=== PATIENT | female | born 1955 | race Caucasian/White ===

== ENCOUNTER 2017-04-10 10:01 | Outpatient (RCR) | payer OTHER | END 2017-07-05 | disposition home or self-care (01) | LOC: CARD 10:01 | PROVIDERS: ATTEND Obstetrics & Gynecology | DX: R00.1 Bradycardia, unspecified (principal); R53.83 Other fatigue; I45.9 Conduction disorder, unspecified | CPT/HCPCS: 93225; 93226 ==

== ENCOUNTER → 2017-04-10 | Outpatient (CLI) | payer OTHER ==
--- NOTE | 2017-04-10 19:59 | Diagnostic Imaging Report ---
Bilateral screening mammogram. The current study was also evaluated with a Computer Aided Detection (CAD) system. INDICATION: Screening. No current complaints stated on the questionnaire. COMPARISON: 12/14/15. FINDINGS: The breasts are composed of heterogeneously dense parenchyma which may decrease mammographic sensitivity. There are benign-appearing calcifications seen. Allowing for technique and positional differences, no suspicious change is seen. IMPRESSION: No significant change. ACR BI-RADS Category 2: Benign findings. Result letter will be mailed to the patient. Note: At least 10% of breast cancer is not imaged by mammography. Dictated by: Dictated on workstation # [id number]
== END ==
LOC: RAD 09:55
PROVIDERS: ATTEND Obstetrics & Gynecology
DX: Z12.31 Encounter for screening mammogram for malignant neoplasm of breast (principal)
CPT/HCPCS: 77067

== ENCOUNTER 2017-10-09 20:08 | Emergency (ER) | payer OTHER ==
[~2017-10-09] VITALS: Ht 157.5 cm; Wt 55.3 kg
[2017-10-09] MEDS ORDERED: NIAC500T24 PO (20:23)
[2017-10-09] MEDS ORDERED: ASPI-586 PO (20:23)
--- NOTE | 2017-10-09 20:36 | ED Lower Extremity ---
General Chief Complaint: Lower Extremity Stated Complaint: LT FOOT/ANKLE INJ Nursing Triage Note: c/o rolling L ankle Nursing Sepsis Screen: No Definite Risk Source: patient Exam Limitations: no limitations History of Present Illness Time seen by provider: 20:35 Initial Comments To ER with left lateral foot and ankle pain after twisting it while walking down bleachers tonight prior to arrival. Onset: just prior to arrival Severity: moderate Pain/Injury Location: left foot Modifying Factors: Worse With Movement Allergies and Home Medications Home Medications Aspirin 81 Mg Tablet.dr, 81 MG PO, (Reported) Hydrocodone/Acetaminophen 1 Each Tablet, 1 EACH PO Q4H PRN for PAIN-MODERATE, # 20 Prescribed by: KATY WEST on 10/09/172100 Niacinamide 500 Mg Tablet, 500 MG PO, (Reported) Constitutional: see HPI EENTM: see HPI Respiratory: no symptoms reported Cardiovascular: no symptoms reported Genitourinary: no symptoms reported Musculoskeletal: no symptoms reported Skin: no symptoms reported Psychiatric/Neurological: No Symptoms Reported Past Tedhigf-Trljlq-Wnoanf Hx Patient Social History Alcohol Use: Denies Use Recreational Drug Use: No 2nd Hand Smoke Exposure: No Recent Foreign Travel: No Contact w/Someone Who Travel: No Recent Infectious Disease Expo: No Surgeries History of Surgeries: Yes Respiratory History of Respiratory Disorde: No Cardiovascular History of Cardiac Disorders: No Neurological History of Neurological Disord: No Genitourinary History of Genitourinary Disor: No Gastrointestinal History of Gastrointestinal Di: No Musculoskeletal History of Musculoskeletal Dis: No Endocrine History of Endocrine Disorders: No HEENT History of HEENT Disorders: No Cancer History of Cancer: No Psychosocial History of Psychiatric Problem: No Integumentary History of Skin or Integumenta: No Blood Transfusions History of Blood Disorders: No Physical Exam Vital Signs Vital Sign - Last 12Hours 10/09/17 20:20 Temp 98.8 Pulse 74 Resp 18 B/P (MAP) 115/59 (77) Pulse Ox 99 Capillary Refill : Less Than 3 Seconds General Appearance: WD/WN, no apparent distress HEENT: PERRL/EOMI, normal ENT inspection Neck: non-tender, full range of motion Respiratory: no respiratory distress, no accessory muscle use Hips: bilateral hip non-tender, bilateral hip normal inspection, bilateral hip normal range of motion Legs: bilateral leg non-tender, bilateral leg normal inspection, bilateral leg normal range of motion Knees: bilateral knee non-tender, bilateral knee normal inspection, bilateral knee normal range of motion Ankles: bilateral ankle non-tender, bilateral ankle normal inspection, bilateral ankle normal range of motion Feet: left foot pain, left foot soft tissue tenderness, left foot other (a bit of ecchymosis laterally over the fifth metatarsal/MTP joint but otherwise no swelling or deformity. Strong dorsalis pedis pulses) Neurologic/Psychiatric: alert, normal mood/affect, oriented x 3 Skin: normal color, warm/dry Progress/Results/Core Measures Results/Orders My Orders Orders - KATY WEST APRN Ankle, Left, 3 Views (10/09/17 20:23) Foot, Left, 3 Views (10/09/17 20:26) Vital Signs/I&O Vital Sign - Last 12Hours 10/09/17 20:20 Temp 98.8 Pulse 74 Resp 18 B/P (MAP) 115/59 (77) Pulse Ox 99 Blood Pressure Mean: 77 Diagnostic Imaging Diagonstic Imaging: Xray Comments NAME: JANET BURROWS [facility] REC#: [id number] PT STATUS: REG ER : 1955 PHYSICIAN: KATY WEST APRN ADMIT DATE: 10/09/17/ER Draft Date of Exam:10/09/17 FOOT, LEFT, 3 VIEWS EXAMINATION: Left foot, 3 views. COMPARISON: None. HISTORY: 61-year-old female, fall. FINDINGS: There is mildly displaced intra-articular fracture involving the base of the fifth metatarsal. There is normal variant congenital fusion of the fifth digit middle and distal phalanges. There is no identified ankle joint effusion. There is no identified additional fracture. IMPRESSION: 1. Mildly displaced intra-articular fracture involving the base of the fifth metatarsal. Dictated on workstation # [id number] Dict: 10/09/172049 Trans: 10/09/172053 MELANY [phone] Interpreted by: GARRETT STINSON MD Electronically signed by: Departure Impression Impression: Primary Impression: Foot fracture, left Disposition: 01 HOME, SELF-CARE Condition: Stable Departure-Patient Inst. Decision time for Depature: 21:00 Referrals: JESSICA OLIVEIRA MD, HOLLY A MD (PCP/Family) Primary Care Physician PASCUAL ANDERSON MD,MANN STAUFFER,NHAN DIANA,SIMON POON,FARIHA Gooden MD Patient Instructions: Foot Fracture (DC) Add. Discharge Instructions: 1. Keep the splint on at all times until you follow up with orthopedics.: Orthopedic surgeon of your choosing tomorrow to make an appointment to be seen. Usually about the 1-2 week ally they will replace my splint with a cast. Use the crutches when walking. All discharge instructions reviewed with patient and/ or family. Voiced understanding. Scripts Hydrocodone/Acetaminophen ([place] 5-325 Tablet) 1 Each Tablet 1 EACH PO Q4H Y for PAIN-MODERATE, #20 TAB Prov: KATY WEST APRN 10/09/17 KATY WEST APRN Oct 09, 2017 20:36
--- NOTE | 2017-10-09 20:55 | Diagnostic Imaging Report ---
EXAMINATION: Left ankle, 3 views. COMPARISON: None. INDICATION: 61-year-old female, fall. Ankle pain. FINDINGS: There is a mildly displaced intra-articular fracture of the base of the fifth metatarsal. There is no identified ankle joint effusion. There is no identified acute fracture specifically at the level of the left ankle. The alignment of the ankle mortise is unremarkable. IMPRESSION: 1. Mildly displaced intra-articular fracture of the base of the fifth metatarsal. 2. No additional acute fracture identified specifically at the level of the left ankle or abnormal alignment of the ankle mortise. Dictated by: Dictated on workstation # [id number]
--- NOTE | 2017-10-09 20:55 | Diagnostic Imaging Report ---
EXAMINATION: Left foot, 3 views. COMPARISON: None. HISTORY: 61-year-old female, fall. FINDINGS: There is mildly displaced intra-articular fracture involving the base of the fifth metatarsal. There is normal variant congenital fusion of the fifth digit middle and distal phalanges. There is no identified ankle joint effusion. There is no identified additional fracture. IMPRESSION: 1. Mildly displaced intra-articular fracture involving the base of the fifth metatarsal. Dictated by: Dictated on workstation # [id number]
[2017-10-09] MEDS ORDERED: HYDR-757 PO (21:01)
[2017-10-09] MEDS ORDERED: RX-HYDROCODONE/APAP 5/325 MG #4 TAB PK PO PRN (21:15)
[2017-10-09 21:29] VITALS: BP 115/59
--- OUTSIDE RECORDS SUMMARY | 2017-10-10 23:36 | XMS REPORT | Continuity of Care Document ---
Author Author [facility] Organization [facility] Address Unknown Phone Unavailable Allergies There is no data. Medications There is no data. Problems Date Dx Coded Attending Type Code Diagnosis Diagnosed By 11/25/2014 Ot V76.12 11/25/2014 Ot V76.12 12/14/2015 Ot V76.12 12/18/2015 GIBBS DO, LEE C Ot Z12.31 12/29/2015 GIBBS DO, LEE C Ot Z12.31 04/03/2017 GIBBS DO, LEE C Ot Z12.31 ENCNTR SCREEN MAMMOGRAM FOR MALIGNANT NE 04/10/2017 GIBBS DO, LEE C Ot Z12.31 ENCNTR SCREEN MAMMOGRAM FOR MALIGNANT NE 04/11/2017 GIBBS DO, LEE C Ot Z12.31 ENCNTR SCREEN MAMMOGRAM FOR MALIGNANT NE 04/11/2017 GIBBS DO, LEE C Ot I45.9 CONDUCTION DISORDER, UNSPECIFIED 04/11/2017 GIBBS DO, LEE C Ot R00.1 BRADYCARDIA, UNSPECIFIED 04/11/2017 GIBBS DO, LEE C Ot R53.83 OTHER FATIGUE 05/30/2017 GIBBS DO, LEE C Ot I45.9 CONDUCTION DISORDER, UNSPECIFIED 05/30/2017 GIBBS DO, LEE C Ot R00.1 BRADYCARDIA, UNSPECIFIED 05/30/2017 GIBBS DO, LEE C Ot R53.83 OTHER FATIGUE 05/30/2017 GIBBS DO, LEE C Ot I45.9 CONDUCTION DISORDER, UNSPECIFIED 05/30/2017 GIBBS DO, LEE C Ot R00.1 BRADYCARDIA, UNSPECIFIED 05/30/2017 GIBBS DO, LEE C Ot R53.83 OTHER FATIGUE 06/16/2017 GIBBS DO, LEE C Ot I45.9 CONDUCTION DISORDER, UNSPECIFIED 06/16/2017 GIBBS DO, LEE C Ot R00.1 BRADYCARDIA, UNSPECIFIED 06/16/2017 GIBBS DO, LEE C Ot R53.83 OTHER FATIGUE 07/05/2017 LEE GIBBS DO Lety Ot I45.9 CONDUCTION DISORDER, UNSPECIFIED 07/05/2017 LEE GIBBS DO Lety Ot R00.1 BRADYCARDIA, UNSPECIFIED 07/05/2017 LEE GIBBS DO Lety Ot R53.83 OTHER FATIGUE Procedures There is no data. Results There is no data. Encounters ACCT No. Visit Date/Time Discharge Status Pt. Type Provider Facility Loc./Unit Complaint [id number] 07/06/2017 10:45:00 07/06/2017 23:59:59 CLS Preadmit BERNIE HARPLEE [facility] CARD BRADYCARDIA R00.1 [id number] 04/10/2017 10:01:00 07/05/2017 00:01:00 DIS Outpatient BERNIE HARPLEE [facility] CARD BRADYCARDIA R00.1 [id number] 04/10/2017 09:55:00 04/10/2017 23:59:59 CLS Outpatient BERNIE HARP LEE C [facility] RAD SCREENING Z12.31 [id number] 12/14/2015 12:57:00 12/14/2015 23:59:59 CLS Outpatient LEE GIBBS DO [facility] RAD SCREENING [id number] 11/04/2013 14:52:00 11/04/2013 23:59:59 CLS Outpatient [id number] 11/24/2014 13:09:00 Document Registration
== END 2017-10-09 21:29 | disposition home or self-care (01) ==
LOC: EDUNIT# 20:08 → ER 20:10
DX: S62.317A Displaced fracture of base of fifth metacarpal bone, left hand, initial encounter for closed fracture (principal); Z79.82 Long term (current) use of aspirin; X50.0XXA Overexertion from strenuous movement or load, initial encounter
CPT/HCPCS: 73610; 73630; 99283

== ENCOUNTER 2018-10-01 15:30 | Outpatient (RCR) | payer OTHER ==
[~2018-10-01 15:30] MED LIST: ASPI-586 PO; HYDR-4226 PO; NIAC500T24 PO
== END 2018-10-01 17:00 | disposition home or self-care (01) ==
PROVIDERS: ATTEND Family Medicine
DX: M54.2 Cervicalgia (principal); R51 Headache; M79.672 Pain in left foot

== ENCOUNTER → 2019-08-26 | Outpatient (CLI) | payer OTHER ==
--- NOTE | 2019-08-26 14:28 | Diagnostic Imaging Report ---
INDICATION: Routine screening. COMPARISON is made with prior mammogram from 06/04/2018 and 04/10/2017. 2-D and 3-D bilateral screening mammography was performed with CAD. Both breasts remain heterogeneously dense, limiting the sensitivity of mammography. No mass or malignant-appearing microcalcifications are seen. Axillae are unremarkable. IMPRESSION: BI-RADS Category 1 No mammographic features suspicious for malignancy are identified. ACR BI-RADS Category 1: Negative. Result letter will be mailed to the patient. Note: At least 10% of breast cancer is not imaged by mammography. Dictated by: Dictated on workstation # [id number]
== END ==
LOC: RAD 11:30
PROVIDERS: ATTEND Obstetrics & Gynecology
DX: Z12.31 Encounter for screening mammogram for malignant neoplasm of breast (principal)
CPT/HCPCS: 77067

== ENCOUNTER → 2020-08-24 | Outpatient (CLI) | payer OTHER ==
[2020-08-24 10:59] LABS: CREATINE KINASE MB 2.9 NG/ML (<6.6)
== END ==
LOC: CARD 10:30
PROVIDERS: ATTEND Family Medicine
DX: R07.9 Chest pain, unspecified (principal)
CPT/HCPCS: 36415; 82553; 83874; 84484; 85379; 93005

== ENCOUNTER 2020-08-29 10:30 | Outpatient (RCR) | payer OTHER | END 2020-11-27 | LOC: CARD 10:30 | PROVIDERS: ATTEND Family Medicine | DX: I49.1 Atrial premature depolarization (principal); I49.3 Ventricular premature depolarization ==

== ENCOUNTER → 2020-08-29 | Outpatient (CLI) | payer OTHER ==
--- NOTE | 2020-08-29 14:26 | Diagnostic Imaging Report ---
INDICATION: Screening. TECHNIQUE: The current study was also evaluated with a Computer Aided Detection (CAD) system. 3-D Tomographic imaging was also performed. COMPARISON: 08/26/2019, 06/04/2018, and 04/10/2017. FINDINGS: There are scattered fibroglandular densities bilaterally. There are vascular calcifications. There is no dominant mass, spiculated lesion, or suspicious calcification identified. The skin, nipples, and axillae are unremarkable. IMPRESSION: Benign findings as above. ACR BI-RADS Category 2: Benign findings. Result letter will be mailed to the patient. Note: At least 10% of breast cancer is not imaged by mammography. Dictated by: Dictated on workstation # [id number]
== END ==
LOC: RAD 10:13
PROVIDERS: ATTEND Obstetrics & Gynecology
DX: Z12.31 Encounter for screening mammogram for malignant neoplasm of breast (principal)
CPT/HCPCS: 77063; 77067

== ENCOUNTER → 2021-08-22 | Outpatient (CLI) | payer OTHER ==
--- NOTE | 2021-08-22 14:14 | Diagnostic Imaging Report ---
Indication: Right thumb pain. TIME OF EXAM: 10 3:00 PM 3 views of the right hand were obtained. There are degenerative changes at the 1st CMC joint with joint space narrowing and marginal spurring. Carpus is otherwise unremarkable. Metacarpals are intact. The phalanges are intact. No fractures are seen. 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 No other significant abnormalities detected. Dictated by: Dictated on workstation # [id number]
--- NOTE | 2021-08-22 14:15 | Diagnostic Imaging Report ---
INDICATION: Right thumb pain. TIME OF EXAM: 1:04PM. 3 views of the right thumb were obtained. Degenerative changes at the 1st CMC joint with joint space narrowing and marginal spur is noted. 1st metacarpal as well as the proximal and distal phalanges of the thumb are intact. No fractures are seen. IMPRESSION: 1st CMC joint degenerative change. No other significant abnormality is detected. Dictated by: Dictated on workstation # [id number]
== END ==
LOC: RAD 12:26
PROVIDERS: ATTEND Family Medicine
DX: Z12.31 Encounter for screening mammogram for malignant neoplasm of breast (principal); M18.11 Unilateral primary osteoarthritis of first carpometacarpal joint, right hand; Z78.0 Asymptomatic menopausal state
CPT/HCPCS: 73130; 73140

== ENCOUNTER → 2021-09-04 | Outpatient (CLI) | payer OTHER ==
--- NOTE | 2021-09-04 12:18 | Diagnostic Imaging Report ---
INDICATION: Postmenopausal. COMPARISON: 08/15/2011 FINDINGS: The bone mineral density of the spine and hips and the femoral necks was measured. The total T score for the spine is -2.8. On the prior exam the T score was -1.5. This value does now indicate osteoporosis. The total T score for each hip is -1.7. On the prior exam the total T score for the left hip is -1.2 and for the right hip -1.3. These values still fall within the range of osteopenia. The T score for the left femoral neck is -1.8 and for the right -1.9. On the prior exam the respective T scores were -1.5 and -1.6. AP Spine L1-L4: [BMD (g/cm2): 0.868] [T-Score: -2.8] [Z-Score: -0.8] [BMD Previous: 1.016] [BMD % Change: -14.6] LT Hip Neck: [BMD (g/cm2): 0.783] [T-Score: -1.8] [Z-Score: -0.1] LT Hip Total: [BMD (g/cm2):0.794] [T-Score:-1.7] [Z-Score: -0.2] [BMD Previous: 0.852] [BMD % Change: -6.8] RT Hip Neck: [BMD (g/cm2):0.773] [T-Score:-1.9] [Z-Score:-0.2] RT Hip Total: [BMD (g/cm2):0.797] [T-score:-1.7] [Z-Score:-0.2] [BMD Previous:0.840] [BMD % Change:-5.1] *Indicates significant change from prior examination based on 95% confidence level. World Health Organization criteria for BMD interpretation classify patients as Normal (T-score at or above -1.0), Osteopenic (T-score between -1.0 and -2.5) or Osteoporotic (T-score at or below -2.5). LIMITATIONS AND MODIFICATION: None. FRACTURE RISK (FRAX SCORE): The ten year probability of (%): Major Osteoporotic Fracture: [15.9] Hip Fracture: [2.5] IMPRESSION: 1. There has been a decrease in bone mineral density in the spine and the T score now indicates osteoporosis. 2. There has been a slight decrease in the bone mineral density of the hips and femoral neck since the prior study. All T score values remain within the range of osteopenia, however. 3. See below National Osteoporosis Foundation guidelines on when to potentially initiate pharmacologic therapy. Based on the National Osteoporosis Foundation Guidelines, pharmacologic treatment should be initiated in any of the following, unless clinical conditions suggest otherwise: * Any patient with prior fragility fracture of the hip or vertebrae. A spine fracture indicates 5X risk for subsequent spine fracture and 2X risk for subsequent hip fracture. * Osteoporosis (T-score <-2.5). * Postmenopausal women and men age 50 and older with low bone mass/osteopenia (T-score between -1.0 and -2.5) by DXA and 10-year major osteoporotic fracture greater than 20% or a 10-year probability of hip fracture greater than 3%. These fracture risks are supplied above in the FRAX score, if applicable. * Clinician judgement and/or patient preferences may indicate treatment for people with 10-year fracture probabilities above or below these levels. Dictated by: Dictated on workstation # [id number]
--- NOTE | 2021-09-04 13:23 | Diagnostic Imaging Report ---
EXAMINATION: Digital mammogram bilateral screening with CAD. INDICATION: Screening. COMPARISON: This study was compared to the prior exams of 08/29/2020, 08/26/2019, and 06/04/2018. PERSONAL HISTORY: At this time, there are no current complaints. FINDINGS: The fibroglandular tissue in both breasts is heterogeneously dense. This does limit the sensitivity of this exam. Overall, there does not appear to have been any significant change when compared to the prior study. No primary or secondary sign of malignancy is noted. IMPRESSION: There is no radiographic evidence for malignancy. ACR BI-RADS Category 1: Negative. Result letter will be mailed to the patient. Note: At least 10% of breast cancer is not imaged by mammography. Dictated by: Dictated on workstation # [id number]
== END ==
LOC: RAD 10:53
PROVIDERS: ATTEND Family Medicine
DX: Z12.31 Encounter for screening mammogram for malignant neoplasm of breast (principal); M79.644 Pain in right finger(s); Z78.0 Asymptomatic menopausal state
CPT/HCPCS: 77063; 77067; 77080

== ENCOUNTER 2023-09-11 13:59 | Emergency (ER) | payer MEDICARE, OTHER ==
[~2023-09-11] VITALS: Ht 160 cm; Wt 55.0 kg
[2023-09-11 14:06] VITALS: BP 123/66
[2023-09-11] MEDS ORDERED: LIDOCAINE 1% INJ 20 ML VIAL INJ ONE (14:15)
[2023-09-11] MEDS ORDERED: Tetanus/Diphtheria/Pertussis (Acell) ADULT Vaccine 0.5 ML IM ONE (14:15)
--- NOTE | 2023-09-11 14:17 | ED Integumentary General ---
General Chief Complaint: Laceration Stated Complaint: LACERATION ABOVE RT EYE Nursing Triage Note: patient presents with laceration to right eyebrow. states she walked into a metal part of a tractor while working outside. bleeding controlled. denies LOC Source: patient Exam Limitations: no limitations History of Present Illness Date Seen by Provider: Sep 11, 2023 Time Seen by Provider: 14:15 Initial Comments Patient is a 67-year-old female who presents the ED for right-sided facial injury. This occurred 30 minutes ago. 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 This resulted in a 2 cm laceration above the right eye. No pain with eye movement, visual changes, headache, dizziness or loss of consciousness. She cleaned the wound and applied Steri-Strips with near approximation. She is not up-to-date on her tetanus within the past 5 years. Bleeding controlled. Not on blood thinners. Allergies and Home Medications Allergies Coded Allergies: No Known Drug Allergies (Unverified , 10/09/17) Patient Home Medication List Home Medication List Reviewed: Yes Aspirin (Aspir 81) 81 Mg Tablet.dr, 81 MG PO, (Reported) Entered as Reported by: JIN DELATORRE on 10/09/172022 Hydrocodone/Acetaminophen (Hydrocodone/Acetaminophen 5 MG/325 MG TAB) 1 Each Tablet, 1 EACH PO Q4H PRN for PAIN-MODERATE Prescribed by: KATY WEST on 10/09/172100 Niacinamide (Niacin) 500 Mg Tablet, 500 MG PO, (Reported) Entered as Reported by: JIN DELATORRE on 10/09/172022 Review of Systems Review of Systems Constitutional: No chills, No diaphoresis, No malaise, No weakness EENTM: No hearing loss, No ear pain, No blurred vision, No double vision, No vision loss, No hoarseness, No mouth pain, No other (Right eyelid laceration) Gastrointestinal: No abdominal pain, No diarrhea, No nausea, No vomiting Genitourinary: No decreased output, No discharge Musculoskeletal: No back pain, No joint pain Skin: change in color All Other Systems Reviewed Negative Unless Noted: Yes Past Kwmmiww-Hlgcxf-Wyfhun Hx Patient Social History Tobacco Use?: No Substance use?: No Alcohol Use?: No Pt feels they are or have been: No Past Medical History Surgeries: Yes Respiratory: No Cardiac: No Neurological: No Genitourinary: No Gastrointestinal: No Musculoskeletal: No Endocrine: No HEENT: No Cancer: No Psychosocial: No Integumentary: No Blood Disorders: No Physical Exam Vital Signs Vital Signs - First Documented 09/11/23 14:06 Temp 36.8 Pulse 68 Resp 15 B/P (MAP) 123/66 (85) Pulse Ox 98 O2 Delivery Room Air Capillary Refill : Less Than 3 Seconds General Appearance: WD/WN, no apparent distress HEENT: PERRL/EOMI, TMs normal, pharynx normal, other (2 cm laceration to right eyebrow) Neck: non-tender, full range of motion, supple Cardiovascular: regular rate, rhythm, no edema, no gallop, no JVD Respiratory: chest non-tender, lungs clear, normal breath sounds, no respiratory distress Gastrointestinal: normal bowel sounds, soft Extremities: normal range of motion, non-tender, normal inspection, no pedal edema 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, no motor/sensory deficits, al ert, normal mood/affect, oriented x 3 Skin: other (2 cm laceration to right eyebrow with adipose involvement.) Lymphatic: no adenopathy Procedures/Interventions Wound Location: Eye, Other (face) Other Wound Location right eyelid Wound Length (cm): 2 Wound's Depth, Shape: superficial, sub Q Wound Explored: clean Irrigated w/ Saline (ccs): 200 Betadine Prep?: Yes Anesthesia: 1% Lidocaine Volume Anesthetic (ccs): 3 Suture: Ethlion Suture Size: 5-0 Number of Sutures: 4 Layer Closure?: 1 Progress/Results/Core Measures Results/Orders My Orders Orders - FABIOLA SHEA Lidocaine 1% Inj 20 Ml (Xylocaine 1% Inj (09/11/23 14:15) Dipht/Pertuss(Acell)/Tet Adult (Dipht/Pe (09/11/23 14:15) Medications Given in ED Current Medications Medications Dose Ordered Sig/Lucero Route Start Time Stop Time Status Last Admin Dose Admin Diphtheria/ Tetanus/Acell Pertussis 0.5 ml ONCE ONCE IM 09/11/23 14:15 09/11/23 14:16 DC 09/11/23 14:21 0.5 ML Vital Signs/I&O 09/11/23 09/11/23 14:06 15:02 Temp 36.8 Pulse 68 72 Resp 15 15 B/P (MAP) 123/66 (85) Pulse Ox 98 97 O2 Delivery Room Air Room Air Blood Pressure Mean: 85 Departure Communication (PCP) Patient with a 2 cm laceration to right eyelid. No eyeball involvement. No headache, dizziness, neck pain. No visual changes. No pain with eye movement. Not concern for orbital injury. Not up-to-date on her tetanus. Update her tetanus here. Four 5-0 Ethilon sutures were placed here in the ED. Remove in 6 days. Topical Neosporin twice a day. If increased redness or swelling to return back to ED. Impression Primary Impression: Facial laceration Disposition: HOME, SELF-CARE Condition: Stable Departure-Patient Inst. Decision time for Depature: 14:55 Referrals: ADELA HOWELL MD (PCP/Family) Primary Care Physician Patient Instructions: Laceration Repair With Stitches ED Add. Discharge Instructions: Remove sutures in 6 days. Topical aspirin twice a day. If increased redness or swelling to return back to ED. All discharge instructions reviewed with patient and/or family. Voiced understanding. FABIOLA SHEA Sep 11, 2023 14:17
== END 2023-09-11 15:03 | disposition home or self-care (01) ==
LOC: EDUNIT# 13:59 → ER 14:02
DX: S01.111A Laceration without foreign body of right eyelid and periocular area, initial encounter (principal); Z23 Encounter for immunization; W22.09XA Striking against other stationary object, initial encounter; Y92.79 Other farm location as the place of occurrence of the external cause
CPT/HCPCS: 90471; 90715; 99282